=== PATIENT | female | born 1970 | race African-American/Black ===

== ENCOUNTER 2019-04-08 20:19 | Emergency (ER) | payer OTHER ==
--- NOTE | 2019-04-08 20:29 | PDOC ---
Rapid Medical Evaluation Time Seen by Provider: 04/08/19 20:28 Medical Evaluation: 04/08/19 20:28 I have performed a brief in-person evaluation of this patient. The patient presents with a chief complaint of:L calf pain x 1 week at rest and w/ exertion. No obvious RF for DVT/PE Pertinent physical exam findings: +ttp to L calf, no swelling I have ordered the following:LLE US The patient will proceed to the ED for further evaluation. Discharge Disposition - Diagnosis Calf pain Qualifiers: Laterality: left Qualified Code(s): M79.662 - Pain in left lower leg - Referrals - Patient Instructions - Post Discharge Activity
[2019-04-08 20:32] VITALS: BP 129/75; PULSE 82; TEMP 98; BMI 26.2
--- NOTE | 2019-04-08 20:49 | PDOC ---
History of Present Illness - General Chief Complaint: Muscle Cramping Stated Complaint: SENT BY PCP Time Seen by Provider: 04/08/19 20:28 - History of Present Illness Initial Comments: 04/08/19 20:46 48-year-old female without comorbidities presents for evaluation of one week of left leg pain and swelling. No trauma or comorbidities. No systemic symptoms. Past History - Past Medical History Allergies/Adverse Reactions: Allergies Allergy/AdvReac Type Severity Reaction Status Date / Time No Known Allergies Allergy Verified 04/08/19 20:31 Home Medications: Ambulatory Orders Rivaroxaban [Xarelto] 15 mg PO BID #42 tab 04/08/19 COPD: No - Immunization History Immunization Up to Date: No - Suicide/Smoking/Psychosocial Hx Smoking History: Unknown if ever smoked Have you smoked in the past 12 months: No Information on smoking cessation initiated: No Hx Alcohol Use: No Drug/Substance Use Hx: No Review of Systems - Review of Systems Constitutional: No: Fever Respiratory: No: Cough, Shortness of Breath Cardiac (ROS): No: Chest Pain, Chest Tightness *Physical Exam - Vital Signs Last Vital Signs Temp Pulse Resp BP Pulse Ox 98.0 F 82 16 129/75 100 04/08/19 20:29 04/08/19 20:29 04/08/19 20:29 04/08/19 20:29 04/08/19 20:29 - Physical Exam Comments: 04/08/19 20:47 HEAD: NC/AT EYES: Conjuntiva clear MS: Full ROM in all joints; left leg is swollen, calf tender, no gross sensory or motr deficits NEUROLOGIC: No gross sensory or motor deficits, NVID SKIN: Normal color and temperature no lesions or rashes Medical Decision Making - Medical Decision Making 04/08/19 21:51 DVT, US reviewed with ER attending physican, pt ok to be d/c'd home on xarelto with hematology f/u *DC/Admit/Observation/Transfer Diagnosis at time of Disposition: DVT (deep venous thrombosis) Calf pain Qualifiers: Laterality: left Qualified Code(s): M79.662 - Pain in left lower leg - Discharge Dispostion Disposition: HOME Condition at time of disposition: Stable Decision to Admit order: No - Referrals Referrals: Casie Zapien MD [Primary Care Provider] - Sampson Osuna MD [Staff Physician] - - Patient Instructions Printed Discharge Instructions: Deep Vein Thrombosis, DI for Deep Vein Thrombosis Additional Instructions: Please start the xarelot and take it as directed . Follow-up with hematology in the next 1-2 days without fail. Rest the leg no strenuous activity. Return to the emergency room immediately should you experience any chest pain or shortness of breath. - Post Discharge Activity
[2019-04-08] MEDS ORDERED: RIVAROXABAN 15 MG TABLET PO ONE (21:55)
== END 2019-04-08 22:16 | disposition home or self-care (01) ==
LOC: JERFT 20:19
DX: M79.662 Pain in left lower leg (principal)
CPT/HCPCS: 93971-TC; 99281-25